=== PATIENT | female | born 1940 | race Caucasian/White ===

== ENCOUNTER 2019-06-29 10:44 | Emergency (ER) | payer MEDICARE, BC ==
--- NOTE | 2019-06-29 12:29 | UC ---
Eye Complaint HPI - HPI Summary HPI Summary: One day of swelling , itching and redness in L eye. She does not think anything bit her and denies insect bite. Feels its slowly improving but still very swollen. denies fever or pain. - History of Current Complaint Chief Complaint: Aj Stated Complaint: L EYE COMP Time Seen by Provider: 06/29/19 12:28 Hx Obtained From: Patient Onset/Duration: Sudden Onset Pain Intensity: 0 Pain Scale Used: 0-10 Numeric Location of Injury: Eye Lid (upper) Aggravating Factor(s): Nothing Alleviating Factor(s): Nothing Associated Signs And Symptoms: Positive: Swelling. Negative: Photophobia, Fever - Allergies/Home Medications Allergies/Adverse Reactions: Allergies Allergy/AdvReac Type Severity Reaction Status Date / Time Sulfa (Sulfonamide Allergy GI Upset Verified 06/29/19 12:04 Antibiotics) PMH/Surg Hx/FS Hx/Imm Hx Previously Healthy: Yes Cardiovascular History: Cardiac Disease, Hypertension - Surgical History Surgical History: Yes Surgery Procedure, Year, and Place: Back surgery - Family History Known Family History: Positive: Non-Contributory - Social History Alcohol Use: Rare Substance Use Type: None Smoking Status (MU): Never Smoked Tobacco Review of Systems All Other Systems Reviewed And Are Negative: Yes Constitutional: Negative: Fever Skin: Negative: Rash Eyes: Positive: Other - L eye lid swelling/itching/redness. Negative: Blurred Vision, Eye Redness, Photophobia ENT: Negative: Nasal Discharge, Sinus Congestion Physical Exam Triage Information Reviewed: Yes Vital Signs: Initial Vital Signs Temp 97.9 F 06/29/19 12:01 Pulse 56 06/29/19 12:01 Resp 12 06/29/19 12:01 BP 164/75 06/29/19 12:01 Pulse Ox 100 06/29/19 12:01 Vital Signs Reviewed: Yes Eyes: Positive: Conjunctiva Clear, Other: - L upper eye lid swelling w/ mild erythema. NO tenderness or upper brow involvement. PERRLA. No pain w/ EOM. Negative: Discharge Eye Complaint Course/Dx - Course Course Of Treatment: L eyelid swelling, itching and some redness; acute. Unclear etiology but will cover for bacterial source. NO EOM involvement and has no vision issues. Could be an element of allergy and advised benadryl or claritin. Blood pressure elevated and advised to review w/ her pcp. - Differential Dx/Diagnosis Provider Diagnosis: Blepharitis Discharge ED - Sign-Out/Discharge Documenting (check all that apply): Patient Departure All imaging exams completed and their final reports reviewed: No Studies - Discharge Plan Condition: Good Disposition: HOME Prescriptions: Cephalexin CAP* [Keflex CAP*] 500 mg PO QID 7 Days #21 cap Patient Education Materials: Blepharitis (ED) Referrals: No Primary Care Phys,NOPCP [Primary Care Provider] - Additional Instructions: We will recheck your blood pressure before you leave. - Billing Disposition and Condition Condition: GOOD Disposition: Home - Attestation Statements Provider Attestation: I was available for consult. This patient was seen by the ALV[facility]. The patient was not presented to , seen by or examined by me -Thelma Dupont MD
[2019-06-29 12:55] VITALS: BP 153/65
== END 2019-06-29 12:55 | disposition home or self-care (01) ==
LOC: UCEAST 10:44
DX: H01.001 Unspecified blepharitis right upper eyelid (principal); I10 Essential (primary) hypertension; Z88.2 Allergy status to sulfonamides
CPT/HCPCS: 99212; G0463

== ENCOUNTER 2019-11-25 11:22 | Day surgery (SDC) | payer MEDICARE, BC ==
[2019-11-25] MEDS ORDERED: BSS OPTH.SOL* BTL ONE (13:09)
[2019-11-25] MEDS ORDERED: Neomycin/Polymy/Dex OPHTH.OIN* 3.5 GM ONE (13:10)
[2019-11-25] MEDS ORDERED: Oxymetazoline 0.05% NASAL SPR* 15 ML BTL ONE (13:10)
[2019-11-25] MEDS ORDERED: fentaNYL* 50 MCG/ML 2 ML VIAL (100 MCG VIAL) ONE (13:21)
[2019-11-25] MEDS ORDERED: Propofol* 10 MG/ML 20 ML BTL ONE (13:22)
[2019-11-25] MEDS ORDERED: Lidocaine 2% PF * 5 ML VIAL ONE (13:22)
[2019-11-25] MEDS ORDERED: Ondansetron INJ* 2 MG/ML VIAL ONE (13:22)
[2019-11-25] MEDS ORDERED: Dexamethasone IV* 4 MG/ML 1 ML (4 MG) ONE (13:22)
[2019-11-25] MEDS ORDERED: Lidocaine 1% w EPI 1:200,000* SDV 30 ML VIAL ONE (13:24)
[2019-11-25] MEDS ORDERED: Metoclopramide IV* 5 MG/ML 2 ML VIAL ONE (14:26)
[2019-11-25 14:54] VITALS: BP 130/88
[2019-11-25] MEDS ORDERED: Acetaminophen TAB* 325 MG ONE (15:05)
--- NOTE | 2019-11-26 00:16 | OP ---
DATE OF OPERATION: 11/25/19 - [facility] DATE OF : 38 SURGEON: Dr. Coughlin. BUNDLE WRAPPER: None. ANESTHESIA: General. PRE-OP DIAGNOSIS: Nasolacrimal duct obstruction, right side. POST-OP DIAGNOSIS: Nasolacrimal duct obstruction, right side. OPERATIVE PROCEDURE: Probe and irrigation, nasolacrimal duct with placement of Jesus tube. COMPLICATIONS: None. ESTIMATED BLOOD LOSS: Less than 10 mL. DESCRIPTION OF PROCEDURE: The patient was brought to the operating room and received general anesthesia. Attention was directed to her right tear duct. She was draped and a punctal dilator was used to dilate the inferior puncta. The superior puncta was inspected and was also dilated with a punctal dilator. We have noted the superior puncta was difficult to dilate. A #00 Arceo probe was passed through the inferior puncta and into the nasal lacrimal system through to the nose. [id number] contact confirmed full passage and the probe was removed. The same probe was placed through the superior puncta where difficulty was encountered going through the superior canaliculus. It did not appear that a false passage was created and inspection did reveal some swelling of the superior canaliculus prior to passage of the probe. A pigtail probe was then placed in the inferior puncta and used to wrap around to the superior canaliculus and out through the superior puncta. Once this maneuver was performed, it became easier to pass a 00 Arceo's probe through the superior canaliculus into the nose where metal on metal contact confirmed full passage. Again, probes were removed from the eye and a Jesus tube was introduced to the filed. A superior aspect of the tube was placed through the superior puncta and retrieved ultimately in the nose using a Jesus hook. Similarly, the inferior aspect of the tube was placed through the inferior puncta and retrieved through the nose. A 50:50 mixture of Afrin and lidocaine with 1% epinephrine had been placed on pledgets and introduced into the nose at the beginning of the case and were removed as needed to continue the surgery. The ends of the Jesus tubes were cut and tied together in the nose. Bleeding that occurred was controlled with gentle pressure on the nose as well as suction as needed. At the end of the case, the Jesus tube was in good position and there was no active bleeding. Topical Maxitrol ointment was placed in the inferior conjunctival fornix of the right eye. The patient was awakened uneventfully and sent to recovery room in stable condition with postop instructions and followup appointment given. [id number]/[facility] #: [id number] [place]
== END 2019-11-25 15:50 | disposition home or self-care (01) ==
LOC: OREAST 11:22
PROVIDERS: ATTEND Ophthalmology
DX: H04.5 Stenosis and insufficiency of lacrimal passages (principal); I10 Essential (primary) hypertension; E78.00 Pure hypercholesterolemia, unspecified
CPT/HCPCS: A9270-GY; J1100; J2001; J2405; J2704; J2765; J3010

== ENCOUNTER 2023-04-26 15:06 | Observation (INO) ==
[2023-04-26 15:33] LABS: ABS Eosinophils 0.2 10^3/uL (0.0-0.5); ABS Lymphocytes 1.6 10^3/uL (1.0-4.8); ABS Monocytes 0.6 10^3/uL (0.0-0.9); ABS Neutrophils 2.1 10^3/uL (1.5-7.6); Eosinophil % 3.3 %; Hematocrit 38.4 % (35-45); Hemoglobin 12.9 g/dL (11.5-14.3); Lymphocyte % 36.3 %; Mean Corpuscular Hemoglobin 30.5 pg (27-33); Mean Corpuscular Hgb Conc 33.5 g/dL (31-36); Mean Corpuscular Volume 90.9 fL (80-97); Mean Platelet Volume 8.6 fL (7.5-11.2); Nucleated Red Blood Cells % 0.1 /100 WBC (0.0-0.4); Platelet Count 188 10^3/uL (150-450); Red Blood Count 4.22 10^6/uL (3.63-4.92); Red Cell Distribution Width 14.7 % (12-17); White Blood Count 4.5 10^3/uL (3.8-11.8)
[2023-04-26 15:57] LABS: Calcium 9.7 mg/dL (8.6-10.3); Potassium 3.8 mmol/L (3.5-5.0); Total Bilirubin 0.4 mg/dL (0.2-1.0)
[2023-04-26 16:02] LABS: Creatinine, Serum 1.05 mg/dL (0.51-0.95)
[2023-04-26 16:03] LABS: Albumin/Globulin Ratio 1.3 (1-3); eGFR CKD-EPI 52.4 (>60)
[2023-04-26 16:17] LABS: INR 1.12 (0.88-1.18)
[2023-04-26 17:09] LABS: High Sensitivity Troponin 1 Hr 7 pg/mL (<15)
[2023-04-26] MEDS ORDERED: Potassium Chlor 20 meq TAB.ER PO ONE (19:23)
[2023-04-26 19:52] LABS: HDL Cholesterol 66.1 mg/dL
[2023-04-26] MEDS ORDERED: Enoxaparin 30 MG/0.3 ML SYR SUBCUT SCH (22:00)
[2023-04-27 06:49] LABS: Calcium 9.1 mg/dL (8.6-10.3); Creatinine, Serum 1.12 mg/dL (0.51-0.95); Magnesium 1.9 mg/dL (1.9-2.7); Potassium 4.2 mmol/L (3.5-5.0); eGFR CKD-EPI 48.5 (>60)
[2023-04-27] MEDS ORDERED: Magnesium Sulfate IV 1GM/100ML 1 GM/100 ML BAG IV ONE (07:05)
[2023-04-27] MEDS ORDERED: Acetaminophen IV 1 GM/100ML 1,000 MG/100 ML BAG IV PRN (13:48)
[2023-04-27 16:48] VITALS: BP 154/98
== END 2023-04-27 17:00 | disposition home or self-care (01) ==
LOC: ED 15:06 → EDHOLD 15:06 → SUATTDRO 18:46 → EDHOLD 04-27 16:48
PROVIDERS: ADMIT Student in an Organized Health Care Education/Training Program; ATTEND Internal Medicine